=== PATIENT | female | born 1955 | race African-American/Black ===

== ENCOUNTER 2022-04-17 11:05 | Inpatient (IN) | payer OTHER, MEDICAID ==
[2022-04-17 11:51] LABS: #Basophils 0.1 thou/uL (0.0-0.2); #Eosinphils 0.1 thou/uL (0.0-0.7); #Lymphocytes 1.9 thou/uL (1.20-3.40); #Monocytes 0.6 thou/uL (0.11-0.59); #Neutrophils 2.2 thou/uL (1.40-6.50); %Basophils 1.4 % (0.0-1.0); %Eosinophils 1.1 % (0.0-10.0); %Lymphocytes 39.7 % (21.0-51.0); %Monocytes 12.2 % (0.0-10.0); %Neutrophils 45.7 % (42.0-75.0); Hemoglobin 12.7 g/dL (12.0-16.0); Mean Corpuscular HGB CONC 32.4 g/dL (32.0-36.0); Mean Corpuscular Hemoglobin 31.6 pg (27.0-31.0); Mean Corpuscular Volume 97.7 fl (78.0-98.0); Mean Platelet Volume 7.5 fL (7.4-10.4); Platelet Count 275 10x3/uL (130-400); RBC Distribution Width 12.7 % (11.5-14.5); Red Blood Cell (RBC) Count 4.02 mill/uL (4.20-5.40); White Blood Cell (WBC) Count 4.9 10x3/uL (4.8-10.8)
[2022-04-17 12:10] LABS: Bilirubin Negative (Negative); Blood, Urine Negative (Negative); Clarity Clear (Clear); Glucose, Urine (Dipstick) Normal (Negative); Ketone, Urine Negative (Negative); Leukocyte Negative Leu/uL (Negative); Nitrite Negative (Negative); Protein, Urine (Dipstick) Negative (Neg-Trace); Specific Gravity, Urine 1.009 (1.002-1.036); Urobilinogen Normal mg/dL (Less than 2); pH, Urine 5.5 (5.0-9.0)
[2022-04-17 12:11] LABS: ALT (SGPT) 17 U/L (8-55); AST (SGOT) 19 U/L (5-34); Albumin 3.7 g/dL (3.4-4.8); Alkaline Phosphatase 96 U/L (40-110); Anion Gap 12 mmol/L (10-20); BUN (Urea Nitrogen) 7 mg/dL (9.8-20.1); Bilirubin, Total 0.4 mg/dL (0.2-1.2); Calc. Creatinine Clearance 0 mL/min (70-130); Calcium 9.3 mg/dL (7.8-10.44); Carbon Dioxide 23 mmol/L (23-31); Chloride 109 mmol/L (98-107); Estimated GFR 75; Globulin 3.8 g/dL (2.4-3.5); Glucose 97 mg/dL (80-115); Potassium 3.4 mmol/L (3.5-5.1); Protein, Total 7.5 g/dL (5.8-8.1); Sodium 141 mmol/L (136-145)
[2022-04-17] MEDS ORDERED: Aspirin Chewable 81 MG TAB ONE (13:12)
[2022-04-17] MEDS ORDERED: Senokot S 8.6-50 MG TAB PO PRN (13:53)
[2022-04-17] MEDS ORDERED: Ondansetron ODT 4 MG TAB PO PRN (13:53)
[2022-04-17] MEDS ORDERED: Acetaminophen 325 MG TAB PO PRN (13:53)
[2022-04-17 16:54] VITALS: BMI 33.7
[2022-04-17] MEDS: Carvedilol 25 MG TAB PO SCH (18:19)
[2022-04-17] MEDS: Famotidine 20 MG TAB PO SCH (20:50)
[2022-04-17] MEDS: Apixaban 5 MG TAB PO SCH (20:51)
[2022-04-17] MEDS ORDERED: Atorvastatin Calcium 40 MG TAB PO SCH (21:00)
[2022-04-17 22:31] LABS: SARS-CoV-2 NAA Rapid Test Not Detected (NotDetected)
[2022-04-18 05:30] LABS: Hemoglobin 11.2 g/dL (12.0-16.0); Mean Corpuscular HGB CONC 32.1 g/dL (32.0-36.0); Mean Corpuscular Hemoglobin 31.6 pg (27.0-31.0); Mean Corpuscular Volume 98.4 fl (78.0-98.0); Mean Platelet Volume 7.3 fL (7.4-10.4); Platelet Count 241 10x3/uL (130-400); RBC Distribution Width 12.6 % (11.5-14.5); Red Blood Cell (RBC) Count 3.56 mill/uL (4.20-5.40); White Blood Cell (WBC) Count 5.8 10x3/uL (4.8-10.8)
[2022-04-18 05:44] LABS: ALT (SGPT) 13 U/L (8-55); AST (SGOT) 17 U/L (5-34); Albumin 3.3 g/dL (3.4-4.8); Alkaline Phosphatase 83 U/L (40-110); Anion Gap 10 mmol/L (10-20); BUN (Urea Nitrogen) 7 mg/dL (9.8-20.1); Bilirubin, Total 0.3 mg/dL (0.2-1.2); Calc. Creatinine Clearance 100 mL/min (70-130); Calcium 8.9 mg/dL (7.8-10.44); Carbon Dioxide 24 mmol/L (23-31); Cardiac Risk 3.6 (Less than 4.5); Chloride 110 mmol/L (98-107); Cholesterol 135 mg/dl (< 200 Desired); Estimated GFR 85; Globulin 3.3 g/dL (2.4-3.5); Glucose 103 mg/dL (80-115); HDL Cholesterol 38 mg/dL (>60 Neg Risk); LDL Cholesterol, Calculated 78 mg/dL; Potassium 3.3 mmol/L (3.5-5.1); Protein, Total 6.6 g/dL (5.8-8.1); Sodium 141 mmol/L (136-145); Triglycerides 95 mg/dL (Less than 150)
[2022-04-18 06:06] LABS: Lymphocytes 48 % (21-51); MDiff Complete? YES; Monocytes 17 % (0-10); Neutrophil 35 % (42-75); Platelet Morphology Comment Appears Adequate; RBC Morphology Normal
[2022-04-18] MEDS ORDERED: Potassium Chloride 20 MEQ TAB PO SCH (07:45)
[2022-04-18] MEDS: Carvedilol 25 MG TAB PO SCH (08:48)
[2022-04-18] MEDS: Famotidine 20 MG TAB PO SCH (08:48)
[2022-04-18] MEDS: Apixaban 5 MG TAB PO SCH (08:48)
[2022-04-18] MEDS ORDERED: Losartan 25 MG TAB PO SCH (09:00)
[2022-04-18] MEDS ORDERED: Aspirin 81 mg Enteric Coated Tablet PO SCH (09:00)
[2022-04-18] MEDS ORDERED: Iopamidol-370 76% 500 ML 1 ML ONE (13:23)
[2022-04-18 16:14] VITALS: BP 120/71; TEMP 98.1
== END 2022-04-18 19:25 | disposition home or self-care (01) | DRG 65 ==
LOC: ERS 11:05 → NEURO 14:46
PROVIDERS: ADMIT Student in an Organized Health Care Education/Training Program; ATTEND Internal Medicine
DX: I63.532 Cerebral infarction due to unspecified occlusion or stenosis of left posterior cerebral artery (principal); I50.32 Chronic diastolic (congestive) heart failure; I48.91 Unspecified atrial fibrillation; I11.0 Hypertensive heart disease with heart failure; R47.81 Slurred speech; R47.1 Dysarthria and anarthria; Z20.822 Contact with and (suspected) exposure to COVID-19; Z95.0 Presence of cardiac pacemaker; Z82.49 Family history of ischemic heart disease and other diseases of the circulatory system; Z79.01 Long term (current) use of anticoagulants; Z79.899 Other long term (current) drug therapy; Z88.5 Allergy status to narcotic agent; Z90.710 Acquired absence of both cervix and uterus; Z98.890 Other specified postprocedural states
CPT/HCPCS: 36415; 70450; 70496; 70498; 71045; 80053; 80061; 81003; 83605; 84484; 85025; 87040; 87086; 93005; 93306; 95712; 95819; 95957; Q9967

== ENCOUNTER 2022-08-11 17:36 | Emergency (ER) | payer OTHER, MEDICAID ==
[2022-08-11 18:03] LABS: #Basophils 0.1 thou/uL (0.0-0.2); #Eosinphils 0.1 thou/uL (0.0-0.7); #Lymphocytes 2.7 thou/uL (1.20-3.40); #Monocytes 0.8 thou/uL (0.11-0.59); #Neutrophils 3.6 thou/uL (1.40-6.50); %Basophils 0.9 % (0.0-1.0); %Eosinophils 1.1 % (0.0-10.0); %Lymphocytes 37.3 % (21.0-51.0); %Monocytes 11.3 % (0.0-10.0); %Neutrophils 49.3 % (42.0-75.0); Hemoglobin 12.2 g/dL (12.0-16.0); Mean Corpuscular HGB CONC 33.3 g/dL (32.0-36.0); Mean Corpuscular Hemoglobin 31.8 pg (27.0-31.0); Mean Corpuscular Volume 95.6 fl (78.0-98.0); Mean Platelet Volume 7.2 fL (7.4-10.4); Platelet Count 263 10x3/uL (130-400); RBC Distribution Width 12.8 % (11.5-14.5); Red Blood Cell (RBC) Count 3.82 mill/uL (4.20-5.40); White Blood Cell (WBC) Count 7.3 10x3/uL (4.8-10.8)
[2022-08-11 18:14] LABS: INR-International Normal Ratio 1.1; PTT 33.8 sec (22.9-36.1); Prothrombin Time 14.6 sec (12.0-14.7)
[2022-08-11 18:30] LABS: ALT (SGPT) 11 U/L (8-55); AST (SGOT) 17 U/L (5-34); Albumin 3.7 g/dL (3.4-4.8); Alkaline Phosphatase 84 U/L (40-110); Anion Gap 12 mmol/L (10-20); BUN (Urea Nitrogen) 7 mg/dL (9.8-20.1); Bilirubin, Total 0.3 mg/dL (0.2-1.2); Calc. Creatinine Clearance 0 mL/min (70-130); Calcium 9.7 mg/dL (7.8-10.44); Carbon Dioxide 25 mmol/L (23-31); Chloride 109 mmol/L (98-107); Estimated GFR 85; Globulin 4.6 g/dL (2.4-3.5); Glucose 98 mg/dL (80-115); Potassium 3.5 mmol/L (3.5-5.1); Protein, Total 8.3 g/dL (5.8-8.1); Sodium 142 mmol/L (136-145)
[2022-08-11] MEDS ORDERED: Proparacaine 0.5% Opth 15 ML BOT ONE (18:37)
[2022-08-11] MEDS ORDERED: Metoclopramide HCl 10 MG/2 ML VIAL ONE (18:39)
[2022-08-11] MEDS ORDERED: diphenhydrAMINE 50 MG/ML VIAL ONE (18:39)
== END 2022-08-11 22:11 | disposition home or self-care (01) ==
LOC: ERS 17:36
DX: R51.9 Headache, unspecified (principal); I10 Essential (primary) hypertension; Z79.899 Other long term (current) drug therapy; Z79.82 Long term (current) use of aspirin; Z79.01 Long term (current) use of anticoagulants
CPT/HCPCS: 36416; 70450; 71045; 80053; 84484; 85025; 85610; 85730; 93005; 94760; 96365; 96366; 96375; J1200; J2765

== ENCOUNTER 2022-10-26 16:38 | Emergency (ER) | payer OTHER, MEDICAID ==
[2022-10-26 18:44] LABS: #Eosinphils 0.1 thou/uL (0.0-0.7); #Monocytes 0.6 thou/uL (0.11-0.59); %Basophils 0.5 % (0.0-1.0); %Eosinophils 1.2 % (0.0-10.0); %Lymphocytes 35.2 % (21.0-51.0); %Monocytes 10.7 % (0.0-10.0); %Neutrophils 52.2 % (42.0-75.0); Hemoglobin 12.5 g/dL (12.0-16.0); Mean Corpuscular HGB CONC 32.4 g/dL (32.0-36.0); Mean Corpuscular Hemoglobin 30.1 pg (27.0-31.0); Mean Platelet Volume 9.5 fL (7.4-10.4); Platelet Count 263 10x3/uL (130-400); RBC Distribution Width 14.3 % (11.5-14.5); Red Blood Cell (RBC) Count 4.15 mill/uL (4.20-5.40); White Blood Cell (WBC) Count 5.7 10x3/uL (4.8-10.8)
[2022-10-26 18:58] LABS: Prothrombin Time 13.6 sec (12.0-14.7)
[2022-10-26 19:10] LABS: ALT (SGPT) 14 U/L (8-55); AST (SGOT) 20 U/L (5-34); Alkaline Phosphatase 90 U/L (40-110); Anion Gap 13 mmol/L (10-20); BUN (Urea Nitrogen) 7 mg/dL (9.8-20.1); Bilirubin, Total 0.4 mg/dL (0.2-1.2); CK (CPK) 97 U/L (29-168); Calc. Creatinine Clearance 0 mL/min (70-130); Calcium 10.2 mg/dL (7.8-10.44); Carbon Dioxide 26 mmol/L (23-31); Chloride 106 mmol/L (98-107); Estimated GFR 89; Globulin 4.2 g/dL (2.4-3.5); Glucose 96 mg/dL (80-115); Protein, Total 8.2 g/dL (5.8-8.1); Sodium 141 mmol/L (136-145)
== END 2022-10-26 20:00 | disposition home or self-care (01) ==
LOC: ERS 16:38
DX: H53.8 Other visual disturbances (principal); I10 Essential (primary) hypertension; Z79.82 Long term (current) use of aspirin; Z79.899 Other long term (current) drug therapy
CPT/HCPCS: 36415; 70450; 71045; 80053; 82550; 85025; 85610; 85730; 86140; 93005; 94760

== ENCOUNTER 2022-11-08 10:17 | Inpatient (IN) | payer OTHER, MEDICAID ==
[2022-11-08] MEDS ORDERED: Meclizine HCl 25 MG TAB ONE (11:11)
[2022-11-08 11:30] LABS: Bacteria/HPF 1+ HPF (None Seen); Bilirubin Negative (Negative); Blood, Urine Negative (Negative); CAUTI Indications for Culture Dysuria,urgency,freq; Clarity Clear (Clear); Glucose, Urine (Dipstick) Normal (Negative); Ketone, Urine Negative (Negative); Leukocyte Negative Leu/uL (Negative); Nitrite Negative (Negative); Protein, Urine (Dipstick) Negative (Neg-Trace); RBC/HPF 0-3 HPF (0-3); Specific Gravity, Urine 1.005 (1.002-1.036); Urobilinogen Normal mg/dL (Less than 2); WBC/HPF 0-3 HPF (0-3); pH, Urine 6.5 (5.0-9.0)
[2022-11-08 11:31] LABS: Urine Culture Reflex No No
[2022-11-08 11:35] LABS: #Eosinphils 0.1 thou/uL (0.0-0.7); #Monocytes 0.5 thou/uL (0.11-0.59); %Basophils 0.7 % (0.0-1.0); %Lymphocytes 20.8 % (21.0-51.0); %Monocytes 9.2 % (0.0-10.0); %Neutrophils 68.1 % (42.0-75.0); Hemoglobin 12.9 g/dL (12.0-16.0); Mean Corpuscular HGB CONC 32.4 g/dL (32.0-36.0); Mean Corpuscular Hemoglobin 30.8 pg (27.0-31.0); Mean Platelet Volume 9.7 fL (7.4-10.4); Platelet Count 281 10x3/uL (130-400); Red Blood Cell (RBC) Count 4.19 mill/uL (4.20-5.40); White Blood Cell (WBC) Count 5.9 10x3/uL (4.8-10.8)
[2022-11-08 12:05] LABS: ALT (SGPT) 16 U/L (8-55); AST (SGOT) 23 U/L (5-34); Albumin 4.1 g/dL (3.4-4.8); Alkaline Phosphatase 96 U/L (40-110); Anion Gap 17 mmol/L (10-20); BUN (Urea Nitrogen) 8 mg/dL (9.8-20.1); Bilirubin, Total 0.5 mg/dL (0.2-1.2); CK (CPK) 55 U/L (29-168); Calc. Creatinine Clearance 0 mL/min (70-130); Calcium 10.1 mg/dL (7.8-10.44); Carbon Dioxide 21 mmol/L (23-31); Chloride 109 mmol/L (98-107); Estimated GFR 74; Globulin 3.8 g/dL (2.4-3.5); Glucose 99 mg/dL (80-115); Lipase 50 U/L (8-78); Potassium 4.2 mmol/L (3.5-5.1); Protein, Total 7.9 g/dL (5.8-8.1); Sodium 143 mmol/L (136-145)
[2022-11-08 15:47] VITALS: BMI 30.9
[2022-11-08] MEDS ORDERED: Ondansetron ODT 4 MG TAB PO PRN (16:02)
[2022-11-08] MEDS ORDERED: Senokot S 8.6-50 MG TAB PO PRN (16:02)
[2022-11-08] MEDS ORDERED: Ondansetron PF 4 MG/2 ML Vial IVP PRN (16:02)
[2022-11-08] MEDS ORDERED: hydrALAZINE 20 MG/ML VIAL SLOW IVP PRN (16:02)
[2022-11-08] MEDS ORDERED: Acetaminophen 650 MG Suppository PR PRN (16:02)
[2022-11-08] MEDS ORDERED: Acetaminophen 325 MG TAB PO PRN (16:02)
[2022-11-08] MEDS ORDERED: Electrolyte Replacement Protocol FS SCH (16:15)
[2022-11-08] MEDS ORDERED: Magnesium 2 GM/50 ML(in water) 2 GM in Premix Bag 1 BAG IVPB SCH (21:00)
[2022-11-08] MEDS ORDERED: Atorvastatin Calcium 40 MG TAB PO SCH (21:00)
[2022-11-09 05:45] LABS: #Eosinphils 0.1 thou/uL (0.0-0.7); #Monocytes 0.7 thou/uL (0.11-0.59); #Neutrophils 3.2 thou/uL (1.40-6.50); %Basophils 0.3 % (0.0-1.0); %Eosinophils 1.6 % (0.0-10.0); %Lymphocytes 30.9 % (21.0-51.0); %Monocytes 12.4 % (0.0-10.0); %Neutrophils 54.6 % (42.0-75.0); Hemoglobin 11.3 g/dL (12.0-16.0); Mean Corpuscular HGB CONC 32.9 g/dL (32.0-36.0); Mean Platelet Volume 9.5 fL (7.4-10.4); Platelet Count 226 10x3/uL (130-400); Red Blood Cell (RBC) Count 3.65 mill/uL (4.20-5.40); White Blood Cell (WBC) Count 5.8 10x3/uL (4.8-10.8)
[2022-11-09 06:10] LABS: ALT (SGPT) 14 U/L (8-55); AST (SGOT) 17 U/L (5-34); Albumin 3.5 g/dL (3.4-4.8); Alkaline Phosphatase 78 U/L (40-110); Anion Gap 12 mmol/L (10-20); BUN (Urea Nitrogen) 8 mg/dL (9.8-20.1); Bilirubin, Total 0.3 mg/dL (0.2-1.2); Calc. Creatinine Clearance 98 mL/min (70-130); Calcium 9.5 mg/dL (7.8-10.44); Carbon Dioxide 24 mmol/L (23-31); Cardiac Risk 3.2 (Less than 4.5); Chloride 108 mmol/L (98-107); Cholesterol 116 mg/dl (< 200 Desired); Estimated GFR 94; Globulin 3.6 g/dL (2.4-3.5); Glucose 97 mg/dL (80-115); HDL Cholesterol 36 mg/dL (>60 Neg Risk); LDL Cholesterol, Calculated 68 mg/dL; Potassium 3.8 mmol/L (3.5-5.1); Protein, Total 7.1 g/dL (5.8-8.1); Sodium 140 mmol/L (136-145); Triglycerides 59 mg/dL (Less than 150)
[2022-11-09] MEDS ORDERED: Aspirin 81 mg Enteric Coated Tablet PO SCH (09:00)
[2022-11-09] MEDS ORDERED: Clopidogrel Bisulfate 75 MG TAB PO SCH (09:00)
[2022-11-09 11:55] VITALS: TEMP 98.1
[2022-11-09 12:41] VITALS: BP 140/77
== END 2022-11-09 12:30 | disposition home or self-care (01) | DRG 69 ==
LOC: ERS 10:17 → 2SE 13:05
PROVIDERS: ADMIT Internal Medicine; ATTEND Internal Medicine
DX: G45.9 Transient cerebral ischemic attack, unspecified (principal); I50.32 Chronic diastolic (congestive) heart failure; F03.918 Unspecified dementia, unspecified severity, with other behavioral disturbance; I11.0 Hypertensive heart disease with heart failure; E78.5 Hyperlipidemia, unspecified; I48.0 Paroxysmal atrial fibrillation; F03.90 Unspecified dementia, unspecified severity, without behavioral disturbance, psychotic disturbance, mood disturbance, and anxiety; Z86.73 Personal history of transient ischemic attack (TIA), and cerebral infarction without residual deficits; Z95.0 Presence of cardiac pacemaker; Z90.710 Acquired absence of both cervix and uterus; Z88.5 Allergy status to narcotic agent; Z79.01 Long term (current) use of anticoagulants; Z79.82 Long term (current) use of aspirin; Z79.899 Other long term (current) drug therapy
CPT/HCPCS: 36415; 70450; 80053; 80061; 81001; 82550; 83690; 83735; 84443; 84484; 85025; 93005; 93010; J3475